=== PATIENT | female | born 1990 ===

== ENCOUNTER 2017-05-16 16:17 | Inpatient (IN) | payer OTHER, MEDICAID ==
[2017-05-16] MEDS ORDERED: Sodium Chloride 0.9% 1,000 ML IV STA ×3 (17:10→21:44)
--- NOTE | 2017-05-16 17:15 | ED PDOC ---
HPI: Abdomen Time Seen by Provider: 05/16/17 16:50 Chief Complaint (Nursing): Flu-like Symptoms Chief Complaint (Provider): Vomiting, abd pain History Per: Patient History/Exam Limitations: no limitations Onset/Duration Of Symptoms: Days (x2) Current Symptoms Are (Timing): Still Present Last Bowel Movement: Days Ago (x3) Additional Complaint(s): Yamel Sage is a 26-year-old female who presents to the emergency department complaining of chills, fatigue, nausea, abdominal pain and recurrent vomiting for 2 days. She denies any associated cough, congestion, diarrhea or dysuria. Patient reports she has not been able totolerate any food, but has kept some Pedialyte down today. Her last bowel movement was Monday. Additionally, patient complains of low back pain onset after working out on Monday, which she has been icing with minimal relief. PMD: None Abnormal Vaginal Bleeding: No Last Menstral Period: 05/12/2017 Past Medical History Reviewed: Historical Data, Nursing Documentation, Vital Signs Vital Signs: Last Vital Signs Temp 98.7 F 05/16/17 16:26 Pulse 71 05/16/17 16:26 Resp 16 05/16/17 16:26 BP 110/64 05/16/17 16:26 Pulse Ox 98 05/16/17 22:11 - Medical History PMH: No Chronic Diseases - Surgical History Surgical History: No Surg Hx - Family History Family History: States: No Known Family Hx - Living Arrangements Living Arrangements: With Family - Social History Current smoker - smoking cessation education provided: No Alcohol: None Drugs: Denies - Allergies Allergies/Adverse Reactions: Allergies Allergy/AdvReac Type Severity Reaction Status Date / Time No Known Allergies Allergy Verified 05/16/17 16:54 Review of Systems ROS Statement: Except As Marked, All Systems Reviewed And Found Negative Constitutional: Positive for: Chills. Negative for: Fever ENT: Negative for: Nose Congestion Respiratory: Negative for: Cough Gastrointestinal: Positive for: Nausea, Vomiting, Abdominal Pain. Negative for : Diarrhea, Constipation Genitourinary Female: Negative for: Dysuria, Frequency, Incontinence, Hematuria , Vaginal Bleeding Musculoskeletal: Positive for: Back Pain Neurological: Negative for: Headache, Dizziness Physical Exam - Reviewed Nursing Documentation Reviewed: Yes Vital Signs Reviewed: Yes - Physical Exam Appears: Positive for: Non-toxic, No Acute Distress Head Exam: Positive for: ATRAUMATIC, NORMAL INSPECTION, NORMOCEPHALIC Skin: Positive for: Normal Color. Negative for: Rash Eye Exam: Positive for: Normal appearance Cardiovascular/Chest: Positive for: Regular Rate, Rhythm Respiratory: Positive for: Normal Breath Sounds Gastrointestinal/Abdominal: Positive for: Normal Exam, Soft, Tenderness (Mild tenderness to epigastric region and right upper quadrant). Negative for: Guarding, Rebound Back: Positive for: Muscle Spasm (Mild tenderness noted across the lower lumbar region, with palpable muscle spasm). Negative for: L CVA Tenderness, R CVA Tenderness, Vertebral Tenderness Extremity: Positive for: Normal ROM. Negative for: Deformity Neurologic/Psych: Positive for: Alert, Oriented - Laboratory Results Result Diagrams: 05/16/17 17:40 05/16/17 17:40 Urine POC: Negative Urine dip results: Negative for: Leukocyte Esterase, Blood, Nitrate, Ketones, Glucose, Bilirubin, Protein - ECG O2 Sat by Pulse Oximetry: 98 (RA) Pulse Ox Interpretation: Normal - Other Rad Abd US X-Ray: Read By Radiologist X-Ray Interpretation: see below Medical Decision Making Medical Decision Making: Time: 17:10 Initial Impression: 26 year old female with abdominal pain, chills, nausea, and vomiting Initial Plan: --Urine test --Urine dip --CMP --Lipase --CBC w/ differential --IV fluids --Toradol 30 mg IV --Zofran 4 mg IV --Abd US --Flu swab US: IMPRESSION: Gallstones, associated with mild gallbladder wall thickening and edema. Early acute cholecystitis could have this appearance. No evidence of pericholecystic fluid or a positive sonographic Elizondo's sign. Recommend clinical correlation. Patient states that initially after receiving Toradol, pain did improve but has since returned. Upon reexamination, patient still has upper abdominal tenderness radiating to her back. Diagnostic test results were discussed with patient. All questions were answered. 4 mg IV morphine given. Call placed to surgery on-call, Dr. Mishra, who states to admit patient to hospitalist service and contact resident care spec to see patient. Dr. Chavez, hospitalist, will admit patient. residential lawn specialist, Dr. Jo will come to bedside to see patient. IV zosyn initial dose given in ED. Patient is aware of and agrees with admission. Scribe Attestation: Documented by Marii Parker, acting as a scribe for Denise Adame PA-C Provider Scribe Attestation: All medical record entries made by the Scribe were at my direction and personally dictated by me. I have reviewed the chart and agree that the record accurately reflects my personal performance of the history, physical exam, medical decision making, and the department course for this patient. I have also personally directed, reviewed, and agree with the discharge instructions and disposition. Disposition - Clinical Impression Clinical Impression: Acute cholecystitis - Patient ED Disposition Is Patient to be Admitted: Yes - Disposition Disposition Time: 22:10 Condition: FAIR - Pt Status Changed To: Hospital Disposition Of: Inpatient - Admit Certification Admit to Inpatient:: After my assessment, the patient will require hospitalization for at least two midnights. This is because of the severity of symptoms shown, intensity of services needed, and/or the medical risk in this patient being treated as an outpatient. - POA Present On Arrival: None Results - Lab Results Lab Results: 05/16/17 05/16/17 05/16/17 19:30 17:40 17:40 WBC 12.5 H RBC 3.94 Hgb 12.0 Hct 36.2 MCV 92.0 MCH 30.5 MCHC 33.2 RDW 13.1 Plt Count 360 MPV 7.0 L Neut % (Auto) 84.2 H Lymph % (Auto) 9.7 L [place] % (Auto) 5.6 Eos % (Auto) 0.1 Baso % (Auto) 0.4 Neut # 10.5 H Lymph # 1.2 Daniels # 0.7 Eos # 0.0 Baso # 0.1 Neutrophils % (Manual) 76 H Band Neutrophils % 3 H Lymphocytes % (Manual) 13 L Monocytes % (Manual) 8 Platelet Estimate Normal Hypochromasia (manual) Slight Anisocytosis (manual) Slight Sodium 137 Potassium 4.3 Chloride 101 Carbon Dioxide 26 Anion Gap 14 BUN 11 Creatinine 1.0 Est GFR ( Amer) > 60 Est GFR (Non-Af Amer) > 60 Random Glucose 148 H Calcium 9.1 Total Bilirubin 1.6 H AST 50 H ALT 44 Alkaline Phosphatase 56 Total Protein 7.4 Albumin 4.0 Globulin 3.4 Albumin/Globulin Ratio 1.2 Lipase 35 Influenza Typ A,B (EIA) Negative for flu a/b
[2017-05-16 17:57] LABS: BASO # 0.1 K/uL (0.0-0.2); BASO % 0.4 % (0.0-2.0); EOS % 0.1 % (0.0-4.0); LYMPH # 1.2 K/uL (1.0-4.3); LYMPH % 9.7 % (20.0-40.0); MEAN CORPUSCULAR HEMOGLOBIN 30.5 pg (27.0-31.0); MEAN CORPUSCULAR HGB CONC 33.2 g/dL (33.0-37.0); MONO # 0.7 K/uL (0.0-0.8); MONO % 5.6 % (0.0-10.0); NEUT # 10.5 K/uL (1.8-7.0); NEUT % 84.2 % (50.0-75.0); PLATELET COUNT 360 K/uL (130-400); RBC 3.94 Mil/uL (3.80-5.20); RED CELL DISTRIBUTION WIDTH 13.1 % (11.5-14.5); WHITE BLOOD COUNT 12.5 K/uL (4.8-10.8)
[2017-05-16 18:29] LABS: ALB/GLOB RATIO 1.2 (1.0-2.1); ALT/SGPT 44 U/L (9-52); AST/SGOT 50 U/L (14-36); BLOOD UREA NITROGEN 11 mg/dl (7-17); CALCIUM 9.1 mg/dL (8.4-10.2); GFR AFRICAN-AMERICAN > 60; GFR NON-AFRICAN AMERICAN > 60; LIPASE 35 U/L (23-300)
[2017-05-16 19:00] LABS: ANISOCYTOSIS SLIGHT; BANDS 3 % (0-2); HYPOCHROMIC SLIGHT; LYMPHOCYTE 13 % (20-50); MONOCYTE 8 % (0-10); NEUTROPHIL 76 % (42-75); PLATELET ESTIMATE NORMAL (NORMAL); TOTAL CELLS COUNTED 100
--- NOTE | 2017-05-16 20:45 | US ---
EXAM: US Abdomen Limited, Right Upper Quadrant EXAM DATE/TIME: 05/16/2017 6:29 PM CLINICAL HISTORY: 26 years old, female; Pain; Abdominal pain; Epigastric; Additional info: Abd pain, vomiting TECHNIQUE: Real-time ultrasound of the right upper quadrant with image documentation. COMPARISON: No relevant prior studies available. FINDINGS: Gallbladder: Contains at least 2 large, shadowing gallstones. Gallbladder wall is abnormally thickened, measuring up to 4.1 mm (normal less than 3 mm). It also appears edematous. No evidence of pericholecystic fluid. Reportedly negative sonographic Elizondo's sign. Common bile duct: Does not appear abnormally dilated, measuring less than 6 mm in diameter. Liver: Within normal limits in appearance. Measures 15.8 cm in length. Normal flow seen in the main portal vein on color and Doppler imaging. Pancreas: Imaged portions appear unremarkable. Right kidney: Within normal limits in appearance. Measures 9.7 cm in length. No evidence of hydronephrosis. Aorta: Imaged portions appear unremarkable. IVC: Imaged portions appear unremarkable. IMPRESSION: Gallstones, associated with mild gallbladder wall thickening and edema. Early acute cholecystitis could have this appearance. No evidence of pericholecystic fluid or a positive sonographic Elizondo's sign. Recommend clinical correlation. Otherwise negative exam.
[2017-05-16] MEDS ORDERED: Piperacillin/Tazobact 3.375 gm Inj IVPB STA (21:44)
[2017-05-16] MEDS ORDERED: Morphine 4 MG/ML VIAL IVP STA (21:44)
[2017-05-16] MEDS ORDERED: Morphine 4 MG/ML VIAL ONE (21:53)
[2017-05-16] MEDS ORDERED: Piperacillin/Tazobact 3.375 gm Inj IVPB ONE (21:53)
[2017-05-16] MEDS: Piperacillin/Tazobact 3.375 GM in Sodium Chloride 0.9% 100 ML IVPB SCH (22:02)
[2017-05-16] MEDS ORDERED: Morphine 4 MG/ML VIAL IVP PRN (22:17)
--- NOTE | 2017-05-16 22:31 | CP.PCM.HP ---
History of Present Illness - History of Present Illness History of Present Illness: This is a 26 yo female with no past medical problems, no surgeries in the past, who presented to the ED with the c/o nausea w/out vomiting, chills, malaise, and generalized sharp, crampy abdominal pain moderate in severity over the past 2 days. Also c/o muscular left lower back spasms after injuring herself working out. She has no other complaints. In the ED, US of the abdomen was performed revealing acute cholecystitis. Dr. Arnett was consulted for general surgery. The patient is for possible lap cholecystectomy tomorrow AM for which she will be NPO at midnight for. She states that she would rather have the surgery later, perhaps next week if possible- I related to her that that may be a possibility but she will have to discuss that option with the surgeon. Patient denies chest pain, shortness of breath, fevers, diarrhea, headache. All of the patient's and/or family's questions were answered at the bedside. Present on Admission - Present on Admission Any Indicators Present on Admission: No History of DVT/PE: No History of Uncontrolled Diabetes: No Review of Systems - Review of Systems Review of Systems: A 12 point review of systems was conducted and found to be negative other than what was specified in the HPI. Past Patient History - Infectious Disease Hx of Infectious Diseases: None - Past Medical History & Family History Past Medical History?: No Past Family History: Reviewed and not pertinent - Past Social History Smoking Status: Never Smoked Alcohol: None Drugs: Denies - PSYCHIATRIC Hx Substance Use: No - SURGICAL HISTORY Hx Surgeries: No - ANESTHESIA Hx Anesthesia: No Meds Allergies/Adverse Reactions: Allergies Allergy/AdvReac Type Severity Reaction Status Date / Time No Known Allergies Allergy Verified 05/16/17 16:54 Physical Exam - Additional Findings Additional findings: Physical exam: Constitutional- cooperative, awake, alert Head- NCAT, PERRL Eye- PERRL, EOMI ENT- normal exam, MMM. Neck- normal inspection, supple, no JVD Respiratory- CTAB, no wheezes rales rhonchi Cardiovascular- RRR, +S1, +S2 no MRG GI/Abdominal-+ tenderness to deep palpation of the right upper quadrant. normal bowel sounds, soft, no mass, no hsm Skin- warm, dry Extremities Exam- normal capillary refill, normal inspection Neurological Exam- alert, awake, oriented Psych- normal mood, normal affect Results - Vital Signs Recent Vital Signs: Last Vital Signs Temp 98.7 F 05/16/17 16:26 Pulse 71 05/16/17 16:26 Resp 16 05/16/17 16:26 BP 110/64 05/16/17 16:26 Pulse Ox 98 05/16/17 22:14 - Labs Result Diagrams: 05/16/17 17:40 05/16/17 17:40 Labs: Laboratory Results - last 24 hr 05/16/17 05/16/17 05/16/17 17:40 17:40 19:30 WBC 12.5 H RBC 3.94 Hgb 12.0 Hct 36.2 MCV 92.0 MCH 30.5 MCHC 33.2 RDW 13.1 Plt Count 360 MPV 7.0 L Neut % (Auto) 84.2 H Lymph % (Auto) 9.7 L [place] % (Auto) 5.6 Eos % (Auto) 0.1 Baso % (Auto) 0.4 Neut # 10.5 H Lymph # 1.2 [place] # 0.7 Eos # 0.0 Baso # 0.1 Neutrophils % (Manual) 76 H Band Neutrophils % 3 H Lymphocytes % (Manual) 13 L Monocytes % (Manual) 8 Platelet Estimate Normal Hypochromasia (manual) Slight Anisocytosis (manual) Slight Sodium 137 Potassium 4.3 Chloride 101 Carbon Dioxide 26 Anion Gap 14 BUN 11 Creatinine 1.0 Est GFR ( Amer) > 60 Est GFR (Non-Af Amer) > 60 Random Glucose 148 H Calcium 9.1 Total Bilirubin 1.6 H AST 50 H ALT 44 Alkaline Phosphatase 56 Total Protein 7.4 Albumin 4.0 Globulin 3.4 Albumin/Globulin Ratio 1.2 Lipase 35 Influenza Typ A,B (EIA) Negative for flu a/b Assessment & Plan - Assessment and Plan (Free Text) Plan: ASSESSMENT/PLAN 1) Acute cholecystitis - Observation on med/surg - consultation with Dr. Arnett for general surgery - Patient is at acceptable risk for lap luda given no medical problems in the past and may proceed if deemed necessary by the surgeon. - NPO @ midnight - Toradol for moderate pain - Morphine for severe pain - zosyn 3.375 mg IVPB q6h as requested by Dr. arnett, first dose given in ED 2) Left lower back muscular spasms - Pain mgmt as above - Apply ice to affected area PRN for pain 3) DVT prophylaxis - SCDs
--- NOTE | 2017-05-16 22:36 | CP.PCM.CON ---
<Twila Jo - Last Filed: 05/16/17 22:50> History of Present Illness - History of Present Illness History of Present Illness: General surgery consult note for Dr. Rodney Jo, PGY-1 Pt S & E at bedside. 26F w/PMH sig for cholelithiasis consulted for abdominal pain x 2 days. Pt reports sudden onset of diffuse abdominal pain 2 days prior to evaluation, pain is moderate-severe, non radiating, intermittent, worsened by PO intake. Admits to nausea, emesis (bilious, non bloody), subjective fevers, anorexia, bloating, constipation, dysuria. Denies hematuria, hemtochezia, diarrhea, constipation. Last BM was 3 days prior to evaluation. PMH: Cholelithiasis, gastritis PSH: Denies All: NKDA SH: Occasional ETOH use (#3-4/wk),denies tobacco or illicit drug use Review of Systems - Review of Systems All systems: reviewed and no additional remarkable complaints except - Constitutional Constitutional: Anorexia, Fever, Weakness. absent: Chills, Headache, Increased Appetite - EENT Eyes: absent: Change in Vision Ears: Dizziness Nose/Mouth/Throat: absent: Sore Throat - Cardiovascular Cardiovascular: absent: Chest Pain, Palpitations - Respiratory Respiratory: absent: Cough - Gastrointestinal Gastrointestinal: Abdominal Pain, Bloating, Change in Bowel Habits, Constipation , Nausea, Vomiting. absent: Diarrhea, Hematemesis, Hematochezia - Genitourinary Genitourinary: Dysuria. absent: Change in Urinary Stream, Difficulty Urinating - Musculoskeletal Musculoskeletal: Muscle Weakness. absent: Numbness, Tingling - Integumentary Integumentary: absent: Rash - Psychiatric Psychiatric: Change in Appetite Past Patient History - Infectious Disease Hx of Infectious Diseases: None - Past Medical History & Family History Past Medical History?: No Past Family History: Reviewed and not pertinent - Past Social History Smoking Status: Never Smoked Alcohol: None Drugs: Denies - PSYCHIATRIC Hx Substance Use: No - SURGICAL HISTORY Hx Surgeries: No - ANESTHESIA Hx Anesthesia: No Meds Allergies/Adverse Reactions: Allergies Allergy/AdvReac Type Severity Reaction Status Date / Time No Known Allergies Allergy Verified 05/16/17 16:54 - Medications Medications: Current Medications Sodium Chloride (Sodium Chloride 0.9%) 1,000 mls @ 125 mls/hr IV .Q8H STA Stop: 05/17/17 05:43 Last Admin: 05/16/17 22:00 Dose: 125 mls/hr Piperacillin Sod/Tazobactam (Sod 3.375 gm/ Sodium Chloride) 100 mls @ 100 mls/ hr IVPB ONCE [facility] Last Admin: 05/16/17 22:02 Dose: 100 mls/hr Piperacillin Sod/Tazobactam (Sod 3.375 gm/ Sodium Chloride) 100 mls @ 100 mls/ hr IVPB Q6 NIKOLE PRN Reason: Protocol Ketorolac Tromethamine (Toradol) 30 mg IVP Q6 PRN PRN Reason: Pain, moderate (4-7) Morphine Sulfate (Morphine) 4 mg IVP Q6 PRN PRN Reason: Pain, severe (8-10) Ondansetron HCl (Zofran Inj) 4 mg IVP Q6 PRN PRN Reason: Nausea/Vomiting Physical Exam - Constitutional Appears: Non-toxic, No Acute Distress - Head Exam Head Exam: ATRAUMATIC, NORMAL INSPECTION, NORMOCEPHALIC - Eye Exam Eye Exam: EOMI, Normal appearance - ENT Exam ENT Exam: Mucous Membranes Moist, Normal Exam - Neck Exam Neck exam: Positive for: Full Rom, Normal Inspection - Respiratory Exam Respiratory Exam: Clear to Auscultation Bilateral, NORMAL BREATHING PATTERN - Cardiovascular Exam Cardiovascular Exam: REGULAR RHYTHM, +S1, +S2 - GI/Abdominal Exam GI & Abdominal Exam: Normal Bowel Sounds, Soft, Tenderness (diffuse). absent: Diminished Bowel Sounds, Distended, Firm, Guarding, Hernia, Hyperactive Bowel Sounds, Rebound, Rigid - Extremities Exam Extremities exam: Positive for: normal inspection. Negative for: pedal edema - Neurological Exam Neurological exam: Alert, CN II-XII Intact, Oriented x3 - Psychiatric Exam Psychiatric exam: Normal Affect, Normal Mood - Skin Skin Exam: Dry, Intact, Normal Color, Warm Results - Vital Signs Recent Vital Signs: Last Vital Signs Temp 98.7 F 05/16/17 16:26 Pulse 71 05/16/17 16:26 Resp 16 05/16/17 16:26 BP 110/64 05/16/17 16:26 Pulse Ox 98 05/16/17 22:14 - Labs Result Diagrams: 05/16/17 17:40 05/16/17 17:40 Labs: Laboratory Results - last 24 hr 05/16/17 05/16/17 05/16/17 17:40 17:40 19:30 WBC 12.5 H RBC 3.94 Hgb 12.0 Hct 36.2 MCV 92.0 MCH 30.5 MCHC 33.2 RDW 13.1 Plt Count 360 MPV 7.0 L Neut % (Auto) 84.2 H Lymph % (Auto) 9.7 L [place] % (Auto) 5.6 Eos % (Auto) 0.1 Baso % (Auto) 0.4 Neut # 10.5 H Lymph # 1.2 [place] # 0.7 Eos # 0.0 Baso # 0.1 Neutrophils % (Manual) 76 H Band Neutrophils % 3 H Lymphocytes % (Manual) 13 L Monocytes % (Manual) 8 Platelet Estimate Normal Hypochromasia (manual) Slight Anisocytosis (manual) Slight Sodium 137 Potassium 4.3 Chloride 101 Carbon Dioxide 26 Anion Gap 14 BUN 11 Creatinine 1.0 Est GFR ( Amer) > 60 Est GFR (Non-Af Amer) > 60 Random Glucose 148 H Calcium 9.1 Total Bilirubin 1.6 H AST 50 H ALT 44 Alkaline Phosphatase 56 Total Protein 7.4 Albumin 4.0 Globulin 3.4 Albumin/Globulin Ratio 1.2 Lipase 35 Influenza Typ A,B (EIA) Negative for flu a/b Assessment & Plan - Assessment and Plan (Free Text) Assessment: 26F w/PMH sig for cholelithiasis, gastritis consulted for abdominal pain x 2 days due to cholecystitis Plan: NPO Pain control IVF Abx Ant-emetic serial ab exams FU MRPC Further recs pending imaging results DW attending Deysi, PGY-1 - Date & Time Date: 05/16/17 Time: 22:38 <Thomas Arnett - Last Filed: 05/20/17 20:51> Results - Vital Signs Recent Vital Signs: Last Vital Signs Temp 98.5 F 05/18/17 08:01 Pulse 51 L 05/18/17 08:01 Resp 18 05/18/17 08:01 BP 120/73 05/18/17 08:01 Pulse Ox 99 05/18/17 08:01 - Labs Result Diagrams: 05/18/17 06:15 05/18/17 06:15 Attending/Attestation - Attestation I have personally seen and examined this patient.: Yes I have fully participated in the care of the patient.: Yes I have reviewed all pertinent clinical information: Yes Notes (Text): Pt was seen and examined at bedside Agree with above note and assessment Pt with Cholelithiasis with upper abdominal pain Epigastric tenderness Labs and radiology reviewed IV antibiotics NPO, IVF MRCP Plan d.w pt in detail Risk and benefit explained in detail.
[2017-05-17] MEDS: Piperacillin/Tazobact 3.375 GM in Sodium Chloride 0.9% 100 ML IVPB SCH ×4 (03:38→21:20)
[2017-05-17 06:25] LABS: HEMOGLOBIN 10.6 g/dL (12.0-16.0); MEAN CELL VOLUME 92.9 fl (81.0-99.0); MEAN CORPUSCULAR HEMOGLOBIN 31.1 pg (27.0-31.0); MEAN CORPUSCULAR HGB CONC 33.5 g/dL (33.0-37.0); RBC 3.42 Mil/uL (3.80-5.20); RED CELL DISTRIBUTION WIDTH 13.3 % (11.5-14.5); WHITE BLOOD COUNT 10.2 K/uL (4.8-10.8)
[2017-05-17 06:31] LABS: ALB/GLOB RATIO 1.1 (1.0-2.1); ALT/SGPT 43 U/L (9-52); AST/SGOT 35 U/L (14-36); BLOOD UREA NITROGEN 7 mg/dl (7-17); CALCIUM 8.1 mg/dL (8.4-10.2); GFR AFRICAN-AMERICAN > 60; GFR NON-AFRICAN AMERICAN > 60
--- NOTE | 2017-05-17 09:05 | CP.PCM.PN ---
<Moi Grace - Last Filed: 05/17/17 09:00> Subjective - Date & Time of Evaluation Date of Evaluation: 05/17/17 Time of Evaluation: 08:30 - Subjective Subjective: 26 year old female patient with no past medical problems, no surgeries in the past, was seen and evaluated this morning for nausea without vomiting, chills, malaise, and generalized sharp, crampy abdominal pain moderate in severity over the past 3 days. Patient reports that her pain has gotten a lot better today, in fact reports no pain at all today. Reports that she she is very hungry. Patient complains of low back pain today which is also improving. Denies of having any acute overnight events. Denies of having any recent F/N/V/C/SOB/CP/ headache/diarrhea/constipation overnight. Denies of any other complains at this time. Objective - Vital Signs/Intake and Output Vital Signs (last 24 hours): Temp Pulse Resp BP Pulse Ox 97.2 F L 66 20 122/80 99 05/17/17 08:43 05/17/17 08:43 05/17/17 08:43 05/17/17 08:43 05/17/17 08:43 - Medications Medications: Current Medications Piperacillin Sod/Tazobactam (Sod 3.375 gm/ Sodium Chloride) 100 mls @ 100 mls/ hr IVPB ONCE [facility] Last Admin: 05/16/17 22:02 Dose: 100 mls/hr Piperacillin Sod/Tazobactam (Sod 3.375 gm/ Sodium Chloride) 100 mls @ 100 mls/ hr IVPB Q6 [facility]KOLE PRN Reason: Protocol Last Admin: 05/17/17 03:38 Dose: 100 mls/hr Ketorolac Tromethamine (Toradol) 30 mg IVP Q6 PRN PRN Reason: Pain, moderate (4-7) Last Admin: 05/17/17 03:43 Dose: 30 mg Morphine Sulfate (Morphine) 4 mg IVP Q6 PRN PRN Reason: Pain, severe (8-10) Ondansetron HCl (Zofran Inj) 4 mg IVP Q6 PRN PRN Reason: Nausea/Vomiting Pantoprazole Sodium (Protonix Inj) 40 mg IVP DAILY [facility] - Labs Labs: 05/17/17 05:30 05/17/17 05:30 - Constitutional Appears: Well, Non-toxic, No Acute Distress - Head Exam Head Exam: ATRAUMATIC - Eye Exam Eye Exam: Normal appearance - ENT Exam ENT Exam: Normal Exam - Neck Exam Neck Exam: Full ROM, Normal Inspection - Respiratory Exam Respiratory Exam: Clear to Ausculation Bilateral, NORMAL BREATHING PATTERN. absent: Rales, Rhonchi, Wheezes - Cardiovascular Exam Cardiovascular Exam: REGULAR RHYTHM, +S1, +S2. absent: Bradycardia, Tachycardia - GI/Abdominal Exam GI & Abdominal Exam: Soft, Normal Bowel Sounds - Rectal Exam Rectal Exam: Deferred - Extremities Exam Extremities Exam: Full ROM, Normal Capillary Refill, Normal Inspection. absent : Calf Tenderness, Joint Swelling, Pedal Edema, Tenderness - Back Exam Back Exam: Full ROM, muscle spasm, NORMAL INSPECTION, tenderness, vertebral tenderness - Neurological Exam Neurological Exam: Alert, Awake, Oriented x3 - Psychiatric Exam Psychiatric exam: Normal Affect, Normal Mood - Skin Skin Exam: Intact, Normal Color, Warm Assessment and Plan - Assessment and Plan (Free Text) Assessment: 26 year old female patient with no past medical problems, no surgeries in the past, was seen and evaluated for suspected acute cholecystitis Plan: 1) Acute cholecystitis - Observation on med/surg - consultation with Dr. Arnett for general surgery - F/u MRCP and imaging - Patient is at acceptable risk for lap luda given no medical problems in the past and may proceed if deemed necessary by the surgeon. - NPO - IVF - Toradol for moderate pain - Morphine for severe pain - zosyn 3.375 mg IVPB q6h as requested by Dr. arnett, first dose given in ED 2) Left lower back muscular spasms - Pain mgmt as above - Apply ice to affected area PRN for pain 3) DVT prophylaxis - SCDs - ambulating <Ana M Montes De Oca - Last Filed: 05/17/17 14:36> Objective - Vital Signs/Intake and Output Vital Signs (last 24 hours): Temp Pulse Resp BP Pulse Ox 97.2 F L 66 20 122/80 99 05/17/17 08:43 05/17/17 08:43 05/17/17 08:43 05/17/17 08:43 05/17/17 08:43 - Medications Medications: Current Medications Piperacillin Sod/Tazobactam (Sod 3.375 gm/ Sodium Chloride) 100 mls @ 100 mls/ hr IVPB ONCE [facility] Last Admin: 05/16/17 22:02 Dose: 100 mls/hr Piperacillin Sod/Tazobactam (Sod 3.375 gm/ Sodium Chloride) 100 mls @ 100 mls/ hr IVPB Q6 [facility] PRN Reason: Protocol Last Admin: 05/17/17 09:44 Dose: 100 mls/hr Ketorolac Tromethamine (Toradol) 30 mg IVP Q6 PRN PRN Reason: Pain, moderate (4-7) Last Admin: 05/17/17 11:24 Dose: 30 mg Morphine Sulfate (Morphine) 4 mg IVP Q6 PRN PRN Reason: Pain, severe (8-10) Ondansetron HCl (Zofran Inj) 4 mg IVP Q6 PRN PRN Reason: Nausea/Vomiting Pantoprazole Sodium (Protonix Inj) 40 mg IVP DAILY [facility] Last Admin: 05/17/17 09:48 Dose: 40 mg - Labs Labs: 05/17/17 05:30 05/17/17 05:30 PT 12.2 Seconds (9.8-13.1) 05/17/17 10:20 INR 1.1 (0.9-1.2) 05/17/17 10:20 APTT 32.3 Seconds (25.6-37.1) 05/17/17 10:20 Attending/Attestation - Attestation I have personally seen and examined this patient.: Yes I have fully participated in the care of the patient.: Yes I have reviewed all pertinent clinical information, including history, physical exam and plan: Yes
[2017-05-17 10:57] LABS: INR 1.1 (0.9-1.2); PARTIAL THROMBOPLASTIN TIME 32.3 Seconds (25.6-37.1); PROTHROMBIN TIME 12.2 Seconds (9.8-13.1)
--- NOTE | 2017-05-17 15:13 | CP.PCM.PN ---
<LoganSergio samuel Raj - Last Filed: 05/17/17 15:47> Subjective - Date & Time of Evaluation Date of Evaluation: 05/17/17 Time of Evaluation: 15:47 - Subjective Subjective: General Surgery: Dr Arnett Pt S&E. No acute complaints. Pts symptoms have resolved. Denies any pain, nausea, vomiting, fevers or chills. Pt is requesting to go home. Pt pending MRCP. Objective - Vital Signs/Intake and Output Vital Signs (last 24 hours): Temp Pulse Resp BP Pulse Ox 97.2 F L 66 20 122/80 99 05/17/17 08:43 05/17/17 08:43 05/17/17 08:43 05/17/17 08:43 05/17/17 08:43 - Medications Medications: Current Medications Piperacillin Sod/Tazobactam (Sod 3.375 gm/ Sodium Chloride) 100 mls @ 100 mls/ hr IVPB ONCE [facility] Last Admin: 05/16/17 22:02 Dose: 100 mls/hr Piperacillin Sod/Tazobactam (Sod 3.375 gm/ Sodium Chloride) 100 mls @ 100 mls/ hr IVPB Q6 NIKOLE PRN Reason: Protocol Last Admin: 05/17/17 09:44 Dose: 100 mls/hr Ketorolac Tromethamine (Toradol) 30 mg IVP Q6 PRN PRN Reason: Pain, moderate (4-7) Last Admin: 05/17/17 11:24 Dose: 30 mg Morphine Sulfate (Morphine) 4 mg IVP Q6 PRN PRN Reason: Pain, severe (8-10) Ondansetron HCl (Zofran Inj) 4 mg IVP Q6 PRN PRN Reason: Nausea/Vomiting Pantoprazole Sodium (Protonix Inj) 40 mg IVP DAILY [facility] Last Admin: 05/17/17 09:48 Dose: 40 mg - Labs Labs: 05/17/17 05:30 05/17/17 05:30 PT 12.2 Seconds (9.8-13.1) 05/17/17 10:20 INR 1.1 (0.9-1.2) 05/17/17 10:20 APTT 32.3 Seconds (25.6-37.1) 05/17/17 10:20 - Constitutional Appears: Non-toxic, No Acute Distress - ENT Exam ENT Exam: Mucous Membranes Moist - Respiratory Exam Respiratory Exam: absent: Accessory Muscle Use, Respiratory Distress - Cardiovascular Exam Cardiovascular Exam: REGULAR RHYTHM. absent: Tachycardia - GI/Abdominal Exam GI & Abdominal Exam: Soft. absent: Distended, Firm, Guarding, Tenderness - Neurological Exam Neurological Exam: Alert, Awake, Oriented x3 - Psychiatric Exam Psychiatric exam: Normal Affect, Normal Mood - Skin Skin Exam: Normal Color, Warm Assessment and Plan - Assessment and Plan (Free Text) Assessment: 26F w/ currently asymptomatic cholelithiasis Plan: pt needs MRCP given hyperbilirubinemia this is not emergent indication if MRI machine continues to malfunction pt clear for d/c with outpatient MRI please f/u with Dr Arnett in clinic for elective cholecystectomy d/w and seen with Dr Melquiades Ford, PGY3 <Tohmas Arnett - Last Filed: 05/20/17 20:53> Objective - Vital Signs/Intake and Output Vital Signs (last 24 hours): Temp Pulse Resp BP Pulse Ox 98.5 F 51 L 18 120/73 99 05/18/17 08:01 05/18/17 08:01 05/18/17 08:01 05/18/17 08:01 05/18/17 08:01 - Labs Labs: 05/18/17 06:15 05/18/17 06:15 PT 12.2 Seconds (9.8-13.1) 05/17/17 10:20 INR 1.1 (0.9-1.2) 05/17/17 10:20 APTT 32.3 Seconds (25.6-37.1) 05/17/17 10:20 Attending/Attestation - Attestation I have personally seen and examined this patient.: Yes I have fully participated in the care of the patient.: Yes I have reviewed all pertinent clinical information, including history, physical exam and plan: Yes Notes (Text): Pt was seen and examined at bedside Agree with above note and assessment Pt is improginv clinically MRCP for T.Bili of 1.7 Rest of labs WNL c.w current mx Plan d.w pt in detail
[2017-05-17] MEDS ORDERED: Gadodiamide 287 MG/ML VIAL (15ML) IV ONE (17:44)
[2017-05-17 23:42] VITALS: O2SAT 99
[2017-05-17 23:47] LABS: SQUAMOUS EPITHIAL 6 /hpf (0-5); URINE BILIRUBIN NEGATIVE (NEGATIVE); URINE BLOOD NEGATIVE (NEGATIVE); URINE CLARITY SLIGHTY-CLOUDY (Clear); URINE COLOR YELLOW (YELLOW); URINE GLUCOSE (UA) NEG (Normal); URINE LEUKOCYTE ESTERASE NEG Leu/uL (Negative); URINE NITRATE NEGATIVE (NEGATIVE); URINE PROTEIN NEGATIVE (NEGATIVE); URINE UROBILINOGEN 0.2-1.0 mg/dL (0.2-1.0)
[2017-05-18] MEDS: Piperacillin/Tazobact 3.375 GM in Sodium Chloride 0.9% 100 ML IVPB SCH ×2 (03:09→09:18)
[2017-05-18 06:53] LABS: MEAN CELL VOLUME 90.9 fl (81.0-99.0); MEAN CORPUSCULAR HEMOGLOBIN 31.6 pg (27.0-31.0); MEAN CORPUSCULAR HGB CONC 34.8 g/dL (33.0-37.0); RBC 3.49 Mil/uL (3.80-5.20); RED CELL DISTRIBUTION WIDTH 13.1 % (11.5-14.5); WHITE BLOOD COUNT 8.4 K/uL (4.8-10.8)
[2017-05-18 07:36] LABS: ALB/GLOB RATIO 1.2 (1.0-2.1); ALBUMIN 3.4 g/dL (3.5-5.0); ALT/SGPT 45 U/L (9-52); AST/SGOT 26 U/L (14-36); BLOOD UREA NITROGEN 11 mg/dl (7-17); CALCIUM 8.9 mg/dL (8.4-10.2); GFR AFRICAN-AMERICAN > 60; GFR NON-AFRICAN AMERICAN > 60
[2017-05-18 08:01] VITALS: BP 120/73; PULSE 51; RESP 18; TEMP 98.5
--- NOTE | 2017-05-18 08:02 | CP.PCM.PN ---
<Sergio Ford - Last Filed: 05/18/17 09:02> Subjective - Date & Time of Evaluation Date of Evaluation: 05/18/17 Time of Evaluation: 08:19 - Subjective Subjective: General Surgery: Dr Arnett Pt S&E. NAEO. Pain resolved. Denies n/v, f/c. Remained overnight for MRCP this morning. MRI machine still not fixed. Pt being provided with rx for stat MRCP. Coordinated with MRI team at [facility], they will be able to image pt today and we will schedule for elective outpatient cholecystectomy to follow. Plan d/w Dr Arnett who has coordinated plans with his office staff and MRI team. Pt is clear for discharge as soon as possible so imaging can be performed today in a timely fashion. Any questions please do not hesitate to call/page surgical product sales consultant team Thank you for involving us in the care of this patient Sergio Ford, PGY3 Objective - Vital Signs/Intake and Output Vital Signs (last 24 hours): Temp Pulse Resp BP Pulse Ox 98.5 F 51 L 18 120/73 99 05/18/17 08:01 05/18/17 08:01 05/18/17 08:01 05/18/17 08:01 05/18/17 08:01 - Medications Medications: Current Medications Piperacillin Sod/Tazobactam (Sod 3.375 gm/ Sodium Chloride) 100 mls @ 100 mls/ hr IVPB ONCE [facility] Last Admin: 05/16/17 22:02 Dose: 100 mls/hr Piperacillin Sod/Tazobactam (Sod 3.375 gm/ Sodium Chloride) 100 mls @ 100 mls/ hr IVPB Q6 NIKOLE PRN Reason: Protocol Last Admin: 05/18/17 03:09 Dose: 100 mls/hr Ketorolac Tromethamine (Toradol) 30 mg IVP Q6 PRN PRN Reason: Pain, moderate (4-7) Last Admin: 05/17/17 23:26 Dose: 30 mg Morphine Sulfate (Morphine) 4 mg IVP Q6 PRN PRN Reason: Pain, severe (8-10) Ondansetron HCl (Zofran Inj) 4 mg IVP Q6 PRN PRN Reason: Nausea/Vomiting Pantoprazole Sodium (Protonix Inj) 40 mg IVP DAILY [facility] Last Admin: 05/17/17 09:48 Dose: 40 mg - Labs Labs: 05/18/17 06:15 05/18/17 06:15 PT 12.2 Seconds (9.8-13.1) 05/17/17 10:20 INR 1.1 (0.9-1.2) 05/17/17 10:20 APTT 32.3 Seconds (25.6-37.1) 05/17/17 10:20 - Constitutional Appears: Non-toxic, No Acute Distress - Respiratory Exam Respiratory Exam: absent: Accessory Muscle Use, Respiratory Distress - Cardiovascular Exam Cardiovascular Exam: REGULAR RHYTHM. absent: Tachycardia - GI/Abdominal Exam GI & Abdominal Exam: Soft. absent: Distended, Firm, Guarding, Rigid, Tenderness <Thomas Arnett - Last Filed: 05/20/17 20:55> Objective - Vital Signs/Intake and Output Vital Signs (last 24 hours): Temp Pulse Resp BP Pulse Ox 98.5 F 51 L 18 120/73 99 05/18/17 08:01 05/18/17 08:01 05/18/17 08:01 05/18/17 08:01 05/18/17 08:01 - Labs Labs: 05/18/17 06:15 05/18/17 06:15 PT 12.2 Seconds (9.8-13.1) 05/17/17 10:20 INR 1.1 (0.9-1.2) 05/17/17 10:20 APTT 32.3 Seconds (25.6-37.1) 05/17/17 10:20 Attending/Attestation - Attestation I have fully participated in the care of the patient.: Yes I have reviewed all pertinent clinical information, including history, physical exam and plan: Yes Notes (Text): Pt is improved clinically MRCP as out pt Cholecystectomy as outpt Low fat diet Po analgesics Plan d.w pt in detail
--- NOTE | 2017-05-18 08:56 | CP.PCM.PN ---
Subjective - Date & Time of Evaluation Date of Evaluation: 05/18/17 Time of Evaluation: 08:30 - Subjective Subjective: 26 year old female patient with no significant PMHx, no surgeries in the past, was seen and evaluated this morning for resolved nausea without vomiting, chills , malaise, and generalized sharp, crampy abdominal pain moderate in severity over the past 3 days. Patient states that her symptoms have resolved completely and does not have any pain today. Reports that she went to [facility] yesterday but the machine was malfunctioning. Patient states that she had a light meal yesterday before bed and denied of any acute complains after it. Denied of having any overnight F/N/V/C/SOB/CP/diarrhea/headache. Denied of having any new complains at this time. Objective - Vital Signs/Intake and Output Vital Signs (last 24 hours): Temp Pulse Resp BP Pulse Ox 98.5 F 51 L 18 120/73 99 05/18/17 08:01 05/18/17 08:01 05/18/17 08:01 05/18/17 08:01 05/18/17 08:01 - Medications Medications: Current Medications Piperacillin Sod/Tazobactam (Sod 3.375 gm/ Sodium Chloride) 100 mls @ 100 mls/ hr IVPB ONCE [facility] Last Admin: 05/16/17 22:02 Dose: 100 mls/hr Piperacillin Sod/Tazobactam (Sod 3.375 gm/ Sodium Chloride) 100 mls @ 100 mls/ hr IVPB Q6 NIKOLE PRN Reason: Protocol Last Admin: 05/18/17 03:09 Dose: 100 mls/hr Ketorolac Tromethamine (Toradol) 30 mg IVP Q6 PRN PRN Reason: Pain, moderate (4-7) Last Admin: 05/17/17 23:26 Dose: 30 mg Morphine Sulfate (Morphine) 4 mg IVP Q6 PRN PRN Reason: Pain, severe (8-10) Ondansetron HCl (Zofran Inj) 4 mg IVP Q6 PRN PRN Reason: Nausea/Vomiting Pantoprazole Sodium (Protonix Inj) 40 mg IVP DAILY [facility] Last Admin: 05/17/17 09:48 Dose: 40 mg - Labs Labs: 05/18/17 06:15 05/18/17 06:15 PT 12.2 Seconds (9.8-13.1) 05/17/17 10:20 INR 1.1 (0.9-1.2) 05/17/17 10:20 APTT 32.3 Seconds (25.6-37.1) 05/17/17 10:20 - Constitutional Appears: Well, Non-toxic, No Acute Distress - Head Exam Head Exam: ATRAUMATIC - Eye Exam Eye Exam: Normal appearance - ENT Exam ENT Exam: Normal Exam - Neck Exam Neck Exam: Full ROM, Normal Inspection - Respiratory Exam Respiratory Exam: Clear to Ausculation Bilateral, NORMAL BREATHING PATTERN. absent: Rales, Rhonchi, Wheezes - Cardiovascular Exam Cardiovascular Exam: REGULAR RHYTHM, +S1, +S2. absent: Bradycardia, Tachycardia - GI/Abdominal Exam GI & Abdominal Exam: Soft, Normal Bowel Sounds - Rectal Exam Rectal Exam: Deferred - Extremities Exam Extremities Exam: Full ROM, Normal Capillary Refill, Normal Inspection. absent : Calf Tenderness, Joint Swelling, Pedal Edema, Tenderness - Back Exam Back Exam: Full ROM, NORMAL INSPECTION, tenderness - Neurological Exam Neurological Exam: Alert, Awake, Oriented x3 - Psychiatric Exam Psychiatric exam: Normal Affect, Normal Mood - Skin Skin Exam: Intact, Normal Color, Warm Assessment and Plan - Assessment and Plan (Free Text) Assessment: 26 year old female patient with no past medical problems, no surgeries in the past, was seen and evaluated for suspected acute cholecystitis Plan: 1) Acute cholecystitis - Observation on med/surg - consultation with Dr. Arnett for general surgery - F/u MRCP and imaging - Since symptoms resolved, if MRI machine continues to malfunction then patient is clear for d/c with outpatient MRI - will perform elective cholecystectomy - Patient is at acceptable risk for lap luda given no medical problems in the past and may proceed if deemed necessary by the surgeon. - NPO - IVF - Toradol for moderate pain - Morphine for severe pain - zosyn 3.375 mg IVPB q6h as requested by Dr. arnett, first dose given in ED 2) Left lower back muscular spasms - Pain mgmt as above - Apply ice to affected area PRN for pain 3) DVT prophylaxis - SCDs - ambulating
--- NOTE | 2017-05-18 10:33 | CP.PCM.DIS ---
<[facility] - Last Filed: 05/18/17 15:38> Provider - Provider Date of Admission: 05/17/17 21:35 Attending physician: Hunter Chavez DO Time Spent in preparation of Discharge (in minutes): 20 Hospital Course - Lab Results Lab Results: Most Recent Lab Values WBC 8.4 K/uL (4.8-10.8) 05/18/17 06:15 RBC 3.49 Mil/uL (3.80-5.20) L 05/18/17 06:15 Hgb 11.0 g/dL (12.0-16.0) L 05/18/17 06:15 Hct 31.7 % (34.0-47.0) L 05/18/17 06:15 MCV 90.9 fl (81.0-99.0) D 05/18/17 06:15 MCH 31.6 pg (27.0-31.0) H 05/18/17 06:15 MCHC 34.8 g/dL (33.0-37.0) 05/18/17 06:15 RDW 13.1 % (11.5-14.5) 05/18/17 06:15 Plt Count 328 K/uL (130-400) 05/18/17 06:15 MPV 7.0 fl (7.2-11.7) L 05/16/17 17:40 Neut % (Auto) 84.2 % (50.0-75.0) H 05/16/17 17:40 Lymph % (Auto) 9.7 % (20.0-40.0) L 05/16/17 17:40 [place] % (Auto) 5.6 % (0.0-10.0) 05/16/17 17:40 Eos % (Auto) 0.1 % (0.0-4.0) 05/16/17 17:40 Baso % (Auto) 0.4 % (0.0-2.0) 05/16/17 17:40 Neut # 10.5 K/uL (1.8-7.0) H 05/16/17 17:40 Lymph # 1.2 K/uL (1.0-4.3) 05/16/17 17:40 [place] # 0.7 K/uL (0.0-0.8) 05/16/17 17:40 Eos # 0.0 K/uL (0.0-0.7) 05/16/17 17:40 Baso # 0.1 K/uL (0.0-0.2) 05/16/17 17:40 Neutrophils % (Manual) 76 % (42-75) H 05/16/17 17:40 Band Neutrophils % 3 % (0-2) H 05/16/17 17:40 Lymphocytes % (Manual) 13 % (20-50) L 05/16/17 17:40 Monocytes % (Manual) 8 % (0-10) 05/16/17 17:40 Platelet Estimate Normal (NORMAL) 05/16/17 17:40 Hypochromasia (manual) Slight 05/16/17 17:40 Anisocytosis (manual) Slight 05/16/17 17:40 PT 12.2 Seconds (9.8-13.1) 05/17/17 10:20 INR 1.1 (0.9-1.2) 05/17/17 10:20 APTT 32.3 Seconds (25.6-37.1) 05/17/17 10:20 Sodium 138 mmol/l (132-148) 05/18/17 06:15 Potassium 4.1 MMOL/L (3.6-5.0) 05/18/17 06:15 Chloride 105 mmol/L (98-107) 05/18/17 06:15 Carbon Dioxide 23 mmol/L (22-30) 05/18/17 06:15 Anion Gap 14 (10-20) 05/18/17 06:15 BUN 11 mg/dl (7-17) 05/18/17 06:15 Creatinine 1.1 mg/dl (0.7-1.2) 05/18/17 06:15 Est GFR ( Amer) > 60 05/18/17 06:15 Est GFR (Non-Af Amer) > 60 05/18/17 06:15 Random Glucose 84 mg/dL (65-105) 05/18/17 06:15 Calcium 8.9 mg/dL (8.4-10.2) 05/18/17 06:15 Total Bilirubin 1.6 mg/dl (0.2-1.3) H 05/18/17 06:15 AST 26 U/L (14-36) 05/18/17 06:15 ALT 45 U/L (9-52) 05/18/17 06:15 Alkaline Phosphatase 49 U/L (38-126) 05/18/17 06:15 Total Protein 6.4 G/DL (6.3-8.2) 05/18/17 06:15 Albumin 3.4 g/dL (3.5-5.0) L 05/18/17 06:15 Globulin 2.9 gm/dL (2.2-3.9) 05/18/17 06:15 Albumin/Globulin Ratio 1.2 (1.0-2.1) 05/18/17 06:15 Lipase 35 U/L (23-300) 05/16/17 17:40 Urine Color Yellow (YELLOW) 05/17/17 23:13 Urine Clarity Slighty-cloudy (Clear) 05/17/17 23:13 Urine pH 6.0 (5.0-8.0) 05/17/17 23:13 Ur Specific [place] 1.017 (1.003-1.030) 05/17/17 23:13 Urine Protein Negative mg/dL (NEGATIVE) 05/17/17 23:13 Urine Glucose (UA) Neg mg/dL (Normal) 05/17/17 23:13 Urine Ketones 80 mg/dL (NEGATIVE) 05/17/17 23:13 Urine Blood Negative (NEGATIVE) 05/17/17 23:13 Urine Nitrate Negative (NEGATIVE) 05/17/17 23:13 Urine Bilirubin Negative (NEGATIVE) 05/17/17 23:13 Urine Urobilinogen 0.2-1.0 mg/dL (0.2-1.0) 05/17/17 23:13 Ur Leukocyte Esterase Neg Larissa/uL (Negative) 05/17/17 23:13 Urine RBC (Auto) 2 /hpf (0-3) 05/17/17 23:13 Urine Microscopic WBC 1 /hpf (0-5) 05/17/17 23:13 Ur Squamous Epith Cells 6 /hpf (0-5) H 05/17/17 23:13 Influenza Typ A,B (EIA) Negative for flu a/b (NEGATIVE) 05/16/17 19:30 - Hospital Course Hospital Course: 26 year old female patient with no past medical problems, no surgeries in the past, was admitted for suspected acute cholecystitis with acute symptoms being nausea without vomiting, chills, malaise, and generalized sharp, crampy abdominal pain moderate in severity. Upon arrival to the hospital patient received US of the abdomen which was consistent with the diagnosis. Patient was seen with elevated total bilirubin, AST and WBC while in ED. Patient was kept NPO immediately, put on IV fluids, IV zosyn and was scheduled for MRCP in preparation of surgery. Patient was also seen by general surgery. During her hospital stay, her symptoms improved and pain resolved. Due to malfunctioning of the MRI machine at the hospital patient was not able to receive MRCP. General surgery recommended patient to receive MRCP at [facility] and schedule for elective cholecystectomy. Patient will follow up at [facility] for further workup. - Date & Time of H&P Date of H&P: 05/18/17 Time of H&P: 10:33 Discharge Exam - Head Exam Head Exam: ATRAUMATIC - Eye Exam Eye Exam: Normal appearance - ENT Exam ENT Exam: Normal Exam - Neck Exam Neck exam: Full Rom, Normal Inspection - Respiratory Exam Respiratory Exam: Clear to PA & Lateral, NORMAL BREATHING PATTERN, UNREMARKABLE - Cardiovascular Exam Cardiovascular Exam: REGULAR RHYTHM, +S1, +S2 - GI/Abdominal Exam GI & Abdominal Exam: Normal Bowel Sounds, Soft - Rectal Exam Rectal Exam: Deferred - Extremities Exam Extremities exam: full ROM, normal capillary refill, normal inspection, pedal pulses present - Back Exam Back exam: FULL ROM, NORMAL INSPECTION, tenderness - Neurological Exam Neurological exam: Alert, Oriented x3 - Psychiatric Exam Psychiatric exam: Normal Affect, Normal Mood - Skin Skin Exam: Dry, Intact, Normal Color, Warm Discharge Plan - Discharge Medications Prescriptions: Amoxicillin/Clavulanate [Augmentin 875 MG-125 MG] 1 tab PO BID #10 tab Metronidazole [Flagyl] 500 mg PO Q8H #15 tablet traMADol [Ultram] 50 mg PO Q6H PRN #20 tab PRN Reason: Pain, Moderate (4-7) - Follow Up Plan Condition: FAIR Disposition: HOME/ ROUTINE Instructions: Cholecystitis (DC), Cholecystitis (GEN) Additional Instructions: MRCP - to be done at [facility] today appt with Dr Mishra for Elective surgery appt with PMD demi return to ED if symptom recurs Referrals: Thomas Arnett MD [Staff Provider] - <Ana M Montes De Oca Dayna - Last Filed: 05/18/17 15:49> Provider - Provider Date of Admission: 05/17/17 21:35 Attending physician: Hunter Chavez [facility] Course - Lab Results Lab Results: Most Recent Lab Values WBC 8.4 K/uL (4.8-10.8) 05/18/17 06:15 RBC 3.49 Mil/uL (3.80-5.20) L 05/18/17 06:15 Hgb 11.0 g/dL (12.0-16.0) L 05/18/17 06:15 Hct 31.7 % (34.0-47.0) L 05/18/17 06:15 MCV 90.9 fl (81.0-99.0) D 05/18/17 06:15 MCH 31.6 pg (27.0-31.0) H 05/18/17 06:15 MCHC 34.8 g/dL (33.0-37.0) 05/18/17 06:15 RDW 13.1 % (11.5-14.5) 05/18/17 06:15 Plt Count 328 K/uL (130-400) 05/18/17 06:15 MPV 7.0 fl (7.2-11.7) L 05/16/17 17:40 Neut % (Auto) 84.2 % (50.0-75.0) H 05/16/17 17:40 Lymph % (Auto) 9.7 % (20.0-40.0) L 05/16/17 17:40 [place] % (Auto) 5.6 % (0.0-10.0) 05/16/17 17:40 Eos % (Auto) 0.1 % (0.0-4.0) 05/16/17 17:40 Baso % (Auto) 0.4 % (0.0-2.0) 05/16/17 17:40 Neut # 10.5 K/uL (1.8-7.0) H 05/16/17 17:40 Lymph # 1.2 K/uL (1.0-4.3) 05/16/17 17:40 [place] # 0.7 K/uL (0.0-0.8) 05/16/17 17:40 Eos # 0.0 K/uL (0.0-0.7) 05/16/17 17:40 Baso # 0.1 K/uL (0.0-0.2) 05/16/17 17:40 Neutrophils % (Manual) 76 % (42-75) H 05/16/17 17:40 Band Neutrophils % 3 % (0-2) H 05/16/17 17:40 Lymphocytes % (Manual) 13 % (20-50) L 05/16/17 17:40 Monocytes % (Manual) 8 % (0-10) 05/16/17 17:40 Platelet Estimate Normal (NORMAL) 05/16/17 17:40 Hypochromasia (manual) Slight 05/16/17 17:40 Anisocytosis (manual) Slight 05/16/17 17:40 PT 12.2 Seconds (9.8-13.1) 05/17/17 10:20 INR 1.1 (0.9-1.2) 05/17/17 10:20 APTT 32.3 Seconds (25.6-37.1) 05/17/17 10:20 Sodium 138 mmol/l (132-148) 05/18/17 06:15 Potassium 4.1 MMOL/L (3.6-5.0) 05/18/17 06:15 Chloride 105 mmol/L (98-107) 05/18/17 06:15 Carbon Dioxide 23 mmol/L (22-30) 05/18/17 06:15 Anion Gap 14 (10-20) 05/18/17 06:15 BUN 11 mg/dl (7-17) 05/18/17 06:15 Creatinine 1.1 mg/dl (0.7-1.2) 05/18/17 06:15 Est GFR ( Amer) > 60 05/18/17 06:15 Est GFR (Non-Af Amer) > 60 05/18/17 06:15 Random Glucose 84 mg/dL (65-105) 05/18/17 06:15 Calcium 8.9 mg/dL (8.4-10.2) 05/18/17 06:15 Total Bilirubin 1.6 mg/dl (0.2-1.3) H 05/18/17 06:15 AST 26 U/L (14-36) 05/18/17 06:15 ALT 45 U/L (9-52) 05/18/17 06:15 Alkaline Phosphatase 49 U/L (38-126) 05/18/17 06:15 Total Protein 6.4 G/DL (6.3-8.2) 05/18/17 06:15 Albumin 3.4 g/dL (3.5-5.0) L 05/18/17 06:15 Globulin 2.9 gm/dL (2.2-3.9) 05/18/17 06:15 Albumin/Globulin Ratio 1.2 (1.0-2.1) 05/18/17 06:15 Lipase 35 U/L (23-300) 05/16/17 17:40 Urine Color Yellow (YELLOW) 05/17/17 23:13 Urine Clarity Slighty-cloudy (Clear) 05/17/17 23:13 Urine pH 6.0 (5.0-8.0) 05/17/17 23:13 Ur Specific [place] 1.017 (1.003-1.030) 05/17/17 23:13 Urine Protein Negative mg/dL (NEGATIVE) 05/17/17 23:13 Urine Glucose (UA) Neg mg/dL (Normal) 05/17/17 23:13 Urine Ketones 80 mg/dL (NEGATIVE) 05/17/17 23:13 Urine Blood Negative (NEGATIVE) 05/17/17 23:13 Urine Nitrate Negative (NEGATIVE) 05/17/17 23:13 Urine Bilirubin Negative (NEGATIVE) 05/17/17 23:13 Urine Urobilinogen 0.2-1.0 mg/dL (0.2-1.0) 05/17/17 23:13 Ur Leukocyte Esterase Neg Larissa/uL (Negative) 05/17/17 23:13 Urine RBC (Auto) 2 /hpf (0-3) 05/17/17 23:13 Urine Microscopic WBC 1 /hpf (0-5) 05/17/17 23:13 Ur Squamous Epith Cells 6 /hpf (0-5) H 05/17/17 23:13 Influenza Typ A,B (EIA) Negative for flu a/b (NEGATIVE) 05/16/17 19:30 Attending/Attestation - Attestation I have personally seen and examined this patient.: Yes I have fully participated in the care of the patient.: Yes I have reviewed all pertinent clinical information, including history, physical exam and plan: Yes Notes (Text): A/P: 1. Biliary Colic , Early Cholecystitis Abd Sono: Gallstones, associated with mild gallbladder wall thickening and edema. Early acute cholecystitis could have this appearance. No evidence of pericholecystic fluid or a positive sonographic Elizondo's sign. Received IV Zosyn, pain mgt pt's symptom resolved Surgery consulted- rec to have MRCP as outpt and have Elective GB surgery- MRCP scheduled at [facility] today then pt will ff up with Dr Arnett -will d/c pt on and [place]
== END 2017-05-18 11:20 | disposition home or self-care (01) | DRG 445 ==
LOC: H.ER 16:17 → H.ERHOLD 21:39 → INTOOBSV 21:39 → H.MEDSURG1 22:53 → OBSVTOIN 05-17 21:35
PROVIDERS: ADMIT Internal Medicine; ATTEND Internal Medicine
DX: K80.00 Calculus of gallbladder with acute cholecystitis without obstruction (principal); N13.30 Unspecified hydronephrosis; K29.70 Gastritis, unspecified, without bleeding